=== PATIENT | female | born 1950 | race Hispanic/Latino ===

== ENCOUNTER 2017-04-21 12:36 | Emergency (ER) | payer OTHER ==
[2017-04-21 13:14] LABS: BASOPHILS % (AUTO) 0.4 % (0.0-5.0); EOSINOPHILS % (AUTO) 0.3 % (0.0-8.0); HEMATOCRIT 39.7 % (36-48); LYMPHOCYTES % (AUTO) 20.7 % (21.0-51.0); MEAN CORPUSCULAR HEMOGLOBIN 31.7 pg (27.0-33.0); MEAN CORPUSCULAR HGB CONC 34.5 g/dL (32.0-36.0); MONOCYTES % (AUTO) 7.9 % (3.0-13.0); NEUTROPHILS % (AUTO) 70.7 % (40.0-77.0); PLATELET COUNT (AUTO) 271 K/uL (130-400); RED BLOOD CELL COUNT(AUTO) 4.31 MIL/uL (4.00-5.50); RED CELL DISTRIBUTION WIDTH 12.5 % (11.0-15.5); WHITE BLOOD COUNT (AUTO) 8.4 K/uL (4.8-10.8)
[2017-04-21 13:16] LABS: APPEARANCE,URINE Clear (CLEAR); BILIRUBIN,URINE Negative (NEGATIVE); COLOR,URINE Yellow (YELLOW); GLUCOSE, URINE (UA) Negative (NEGATIVE); KETONES,URINE Negative (NEGATIVE); LEUKOCYTE ESTERASE ,URINE Moderate (NEGATIVE); NITRATE,URINE Negative (NEGATIVE); OCCULT BLOOD,URINE Negative (NEGATIVE); PROTEIN,URINE Negative (NEGATIVE); UROBILINOGEN,URINE 0.2 mg/dL (0.2-1.0)
[2017-04-21] MEDS ORDERED: ONDANSETRON HCL 4 MG/2 ML VIAL ONE (13:21)
[2017-04-21 13:22] LABS: CREATININE 0.8 mg/dL (0.5-1.5); POTASSIUM 3.7 mmol/L (3.5-5.1)
[2017-04-21] MEDS ORDERED: DICYCLOMINE HCL 10 MG/ML 2ML AMP IM ONE (13:22)
[2017-04-21] MEDS ORDERED: SODIUM CHLORIDE 0.9% 1000ML 1,000 ML IV ONE (13:22)
[2017-04-21 13:23] LABS: INR 1.05 (0.85-1.15); PARTIAL THROMBOPLASTIN TIME 28.1 SEC (26.3-35.5)
[2017-04-21 13:27] LABS: ALBUMIN 4.2 g/dL (3.5-5.0); BILIRUBIN,TOTAL 0.5 mg/dL (0.2-1.0); TOTAL PROTEIN, SERUM 8.4 g/dL (6.0-8.3)
[2017-04-21 13:28] LABS: BACTERIA,URINE Rare /HPF (None Seen); RBC,URINE 0-1 /HPF (0-1); SQUAMOUS EPITHELIAL CELL,UR 0-2 /LPF (0-2); WBC,URINE 0-1 /HPF (0-1)
== END 2017-04-21 15:04 | disposition home or self-care (01) ==
LOC: EDH 12:36
DX: R10.12 Left upper quadrant pain (principal); R10.11 Right upper quadrant pain; R10.13 Epigastric pain; R11.0 Nausea; K21.9 Gastro-esophageal reflux disease without esophagitis; Z90.710 Acquired absence of both cervix and uterus
CPT/HCPCS: 36415; 71045; 76705; 80053; 81001; 83690; 84484; 85025; 85610; 85730; 93005; 96361; 96372; 96374; 99285; J0500; J2405; J7030

== ENCOUNTER 2017-04-28 03:42 | Observation (INO) | payer OTHER ==
[~2017-04-28] VITALS: Ht 160 cm; Wt 73.9 kg
[2017-04-28] MEDS ORDERED: LIDOCAINE HCL 2% VISCOUS 15 ML UDCUP ONE ×4 (04:45→20:43)
[2017-04-28] MEDS ORDERED: MAG HYDROX/AL HYDROX/SIMETH ES 30 ML SUSP UDCUP ONE ×3 (04:45→15:53)
[2017-04-28] MEDS ORDERED: FAMOTIDINE 20MG TAB 20 MG TAB ONE (04:45)
[2017-04-28 05:11] LABS: BASOPHILS % (AUTO) 0.6 % (0.0-5.0); EOSINOPHILS % (AUTO) 1.3 % (0.0-8.0); HEMATOCRIT 38.9 % (36-48); LYMPHOCYTES % (AUTO) 29.3 % (21.0-51.0); MEAN CORPUSCULAR HEMOGLOBIN 32.1 pg (27.0-33.0); MEAN CORPUSCULAR VOLUME 91.7 fL (79-99); MONOCYTES % (AUTO) 7.7 % (3.0-13.0); NEUTROPHILS % (AUTO) 61.1 % (40.0-77.0); PLATELET COUNT (AUTO) 278 K/uL (130-400); RED BLOOD CELL COUNT(AUTO) 4.24 MIL/uL (4.00-5.50); RED CELL DISTRIBUTION WIDTH 12.2 % (11.0-15.5); WHITE BLOOD COUNT (AUTO) 8.9 K/uL (4.8-10.8)
[2017-04-28 05:20] LABS: CREATININE 0.8 mg/dL (0.5-1.5); POTASSIUM 3.6 mmol/L (3.5-5.1)
[2017-04-28 05:26] LABS: ALBUMIN 4.1 g/dL (3.5-5.0); BILIRUBIN,TOTAL 0.4 mg/dL (0.2-1.0); TOTAL PROTEIN, SERUM 8.1 g/dL (6.0-8.3)
[2017-04-28] MEDS ORDERED: SODIUM CHLORIDE 0.9% 1000ML 1,000 ML IV ONE ×2 (05:35→07:40)
[2017-04-28] MEDS ORDERED: SODIUM CHLORIDE 0.9% 1000ML 1,000 ML IV SCH (07:07)
[2017-04-28] MEDS ORDERED: ONDANSETRON HCL 4 MG/2 ML VIAL IV PRN (07:15)
[2017-04-28] MEDS ORDERED: POTASSIUM CHLORIDE 10% ELIXIR 20 MEQ/15 ML UDCUP PO PRN (07:15)
[2017-04-28] MEDS ORDERED: MORPHINE SULFATE 2 MG/ML 1ML SYG IV PRN (07:15)
[2017-04-28] MEDS ORDERED: LIDOCAINE HCL-MPF 1% 2ML VIAL IVP PRN (07:15)
[2017-04-28] MEDS ORDERED: POTASSIUM CHLORIDE 20MEQ/100ML 100 ML IV PRN (07:15)
[2017-04-28] MEDS ORDERED: MORPHINE SULFATE 4 MG/1ML SYG IV PRN (07:15)
[2017-04-28] MEDS ORDERED: HYDRALAZINE HCL 20 MG/ML VIAL IV PRN (07:15)
[2017-04-28] MEDS ORDERED: POTASSIUM CHLORIDE 20 MEQ ERTAB PO PRN (07:15)
[2017-04-28] MEDS ORDERED: PANTOPRAZOLE SODIUM 40 MG TABLET.DR PO ONE ×2 (07:40→20:44)
[2017-04-28] MEDS ORDERED: POTASSIUM CHLORIDE 20 MEQ ERTAB PO ONE (07:41)
[2017-04-28] MEDS ORDERED: PANTOPRAZOLE 40 MG/VIAL IVP SCH (09:00)
[2017-04-28] MEDS ORDERED: MAGNESIUM HYDROXIDE 30 ML/UDCUP ONE (20:43)
[2017-04-28] MEDS: PANTOPRAZOLE SODIUM 40 MG TABLET.DR PO SCH (21:00)
[2017-04-28 22:07] VITALS: BP 127/85
[2017-04-28] MEDS ORDERED: OMEP20TA25 PO (22:31)
[2017-04-28] MEDS ORDERED: DICY20TA11 PO (22:31)
[2017-04-28] MEDS ORDERED: SUCR1ORA5 PO (22:31)
[2017-04-28] MEDS ORDERED: PANT40TA25 PO (22:31)
[2017-04-29] MEDS ORDERED: LIDOCAINE HCL 2% VISCOUS 15 ML UDCUP ONE (02:45)
[2017-04-29] MEDS ORDERED: MAG HYDROX/AL HYDROX/SIMETH ES 30 ML SUSP UDCUP ONE (02:46)
[2017-04-29] MEDS: LIDOCAINE HCL 2% VISCOUS 15 ML UDCUP PO PRN ×2 (03:03→10:42)
[2017-04-29] MEDS: MAG HYDROX/AL HYDROX/SIMETH ES 30 ML SUSP UDCUP PO PRN ×2 (03:04→10:42)
[2017-04-29 03:29] VITALS: BP 119/83
[2017-04-29 07:31] VITALS: BP 107/68
[2017-04-29] MEDS: PANTOPRAZOLE SODIUM 40 MG TABLET.DR PO SCH (10:41)
[2017-04-29 12:06] VITALS: BP 101/66
[2017-04-29] MEDS ORDERED: ONDA8TAB8 PO (13:05)
[2017-04-29] MEDS ORDERED: LANS1COM10 PO (13:05)
== END 2017-04-29 15:35 | disposition home or self-care (01) ==
LOC: EDH 03:42 → UNDOADMOB 05:55 → EDHIP 05:55 → WSH 22:00 → EDHIP 22:00
PROVIDERS: ADMIT Internal Medicine; ATTEND Internal Medicine
DX: R10.13 Epigastric pain (principal); E78.5 Hyperlipidemia, unspecified; Z90.710 Acquired absence of both cervix and uterus
CPT/HCPCS: 36415 ×2; 74176; 80053; 82550; 83690; 84132; 84484; 85025; 86677; 93005; 99285; C9113; G0378 ×16; J7030 ×2

== ENCOUNTER 2017-05-19 09:11 | Day surgery (SDC) | payer OTHER ==
[~2017-05-19] VITALS: Ht 165.1 cm; Wt 72.5 kg
[~2017-05-19 09:11] MED LIST: DICY20TA11 PO; LANS1COM10 PO; ONDA8TAB8 PO; PANT40TA25 PO; SUCR1ORA5 PO
[2017-05-19 09:35] VITALS: BP 110/66
[2017-05-19] MEDS ORDERED: MULT1TAB70 PO (10:19)
[2017-05-19] MEDS ORDERED: SUCR1TAB2 PO (10:19)
[2017-05-19] MEDS ORDERED: PRAV20TA4 PO (10:19)
[2017-05-19] MEDS ORDERED: CALC-979 PO (10:19)
[2017-05-19] MEDS ORDERED: BUSP10TA3 PO (10:19)
[2017-05-19] MEDS ORDERED: PANT40TA25 PO (10:19)
[2017-05-19] MEDS ORDERED: SODIUM CHLORIDE 0.9% 1000ML 1,000 ML IV ONE (10:28)
[2017-05-19] MEDS ORDERED: PROPOFOL 10 MG/ML 20ML VIAL IV ONE (11:12)
[2017-05-19 11:23] VITALS: BP 85/57
== END 2017-05-19 12:02 | disposition home or self-care (01) ==
LOC: SUH 09:11 → DAH 09:11 → SUH 12:02
PROVIDERS: ATTEND Internal Medicine Gastroenterology
DX: K29.60 Other gastritis without bleeding (principal); E78.5 Hyperlipidemia, unspecified; Z79.899 Other long term (current) drug therapy; Z68.31 Body mass index [BMI] 31.0-31.9, adult
CPT/HCPCS: 43239; 88305; 88312; 88342; A4606; J2704; J7030

== ENCOUNTER → 2018-01-26 | Outpatient (CLI) | payer OTHER ==
[~2018-01-26] MED LIST changes: +BUSP10TA3 PO; +CALC-979 PO; -DICY20TA11 PO; -LANS1COM10 PO; +MULT1TAB70 PO; -ONDA8TAB8 PO; -PANT40TA25 PO; +PRAV20TA4 PO; -SUCR1ORA5 PO; +SUCR1TAB2 PO
== END | disposition home or self-care (01) ==
LOC: RAH 08:00
PROVIDERS: ATTEND Internal Medicine Gastroenterology
DX: K76.0 Fatty (change of) liver, not elsewhere classified (principal)
CPT/HCPCS: 76700

== ENCOUNTER → 2018-02-09 | Outpatient (CLI) | payer OTHER ==
[~2018-02-09] MED LIST changes: +SINCALIDE 5 MCG ML VIAL IV ONE
== END | disposition home or self-care (01) ==
LOC: RAH 02-07 10:09
PROVIDERS: ATTEND Internal Medicine Gastroenterology
DX: K82.9 Disease of gallbladder, unspecified (principal)
CPT/HCPCS: 78227; A9537; J2805